=== PATIENT | female | born 1975 ===

== ENCOUNTER 2017-05-06 09:32 | Emergency (ER) | payer OTHER ==
[2017-05-06 10:16] VITALS: RESP 16; TEMP 98.1
[2017-05-06] MEDS ORDERED: Famotidine 20mg/50ml 20 MG/50 ML BAG IVPB STA (10:32)
[2017-05-06] MEDS ORDERED: Morphine 2 mg/ml ISec IVP STA (10:32)
--- NOTE | 2017-05-06 10:34 | ED PDOC ---
Arrival/HPI - General Chief Complaint: Abdominal Pain Time Seen by Provider: 05/06/17 10:19 Historian: Patient - History of Present Illness Narrative History of Present Illness (Text): 05/06/17 10:30 This 42 yo female with pmh asthma, GERD, presents to this ED c/o epigastric pain x 3 days. Patient stated she feels nauseous at this time, but she has not vomited. Patient denies sob, cp, pelvic pain, urinary symptoms, vaginal discharge, STD exposure, dizziness, or abnormal gait. Time/Duration: Other (3 days) Context: Home Past Medical History - Provider Review Nursing Documentation Reviewed: Yes - Infectious Disease Hx of Infectious Diseases: None - Reproductive Menopause: No - Psychiatric Hx Substance Use: No - Surgical History Hx Section: Yes - Anesthesia Hx Anesthesia: No Family/Social History - Physician Review Nursing Documentation Reviewed: Yes Family/Social History: Other (noncontributory) Smoking Status: Unknown If Ever Smoked Hx Alcohol Use: No Hx Substance Use: No Allergies/Home Meds Allergies/Adverse Reactions: Allergies No Known Allergies Allergy (Verified 05/06/17 10:24) Review of Systems - Review of Systems Constitutional: Normal. absent: Fatigue, Weight Change, Fevers Eyes: Normal ENT: Normal Respiratory: Normal. absent: SOB, Cough Cardiovascular: Normal. absent: Chest Pain, Palpitations Gastrointestinal: Normal, Abdominal Pain, Nausea. absent: Diarrhea, Vomiting Genitourinary Female: Normal. absent: Dysuria, Frequency, Hematuria Musculoskeletal: Normal. absent: Back Pain, Neck Pain Skin: Normal. absent: Rash Neurological: Normal. absent: Headache, Dizziness, Focal Weakness, Gait Changes , Speech Changes Endocrine: Normal Hemo/Lymphatic: Normal Psychiatric: Normal Physical Exam Vital Signs Temp Pulse Resp BP Pulse Ox 05/06/17 12:14 54 L 143/77 100 05/06/17 10:14 98.1 F 59 L 16 128/66 100 Temperature: Afebrile Blood Pressure: Normal Pulse: Regular Respiratory Rate: Normal Appearance: Positive for: Well-Appearing, Non-Toxic, Comfortable Pain Distress: None Mental Status: Positive for: Alert and Oriented X 3 - Systems Exam Head: Present: Atraumatic, Normocephalic Pupils: Present: PERRL Extroacular Muscles: Present: EOMI Conjunctiva: Present: Normal Mouth: Present: Moist Mucous Membranes Neck: Present: Normal Range of Motion Respiratory/Chest: Present: Clear to Auscultation, Good Air Exchange. No: Respiratory Distress, Accessory Muscle Use Cardiovascular: Present: Regular Rate and Rhythm, Normal S1, S2. No: Murmurs Abdomen: Present: Normal Bowel Sounds. No: Tenderness, Distention, Peritoneal Signs, Rebound, Guarding Back: Present: Normal Inspection Upper Extremity: Present: Normal Inspection, Normal ROM. No: Cyanosis, Edema Lower Extremity: Present: Normal Inspection, Normal ROM. No: Edema Neurological: Present: GCS=15, CN II-XII Intact, Speech Normal Skin: Present: Warm, Dry, Normal Color. No: Rashes Psychiatric: Present: Alert, Oriented x 3, Normal Insight, Normal Concentration Medical Decision Making ED Course and Treatment: 05/06/17 14:13 Re-evaluation. Patient feels better. Discussed results and plan with patient who expresses understanding. All questions answered and there is agreement with the plan to discharge home with instructions. Patient stable for discharge. Return if symptoms persist or worsen. Abdomen is soft, nt/nd. Patient was recommended she needs to f/u pmd, and GI doctor, possible endoscopy. Patient was recommended to return to emergency if pain worsen. Labs are normal, VS and physical exam unremarkable Re-evaluation Time: 14:12 Reassessment Condition: Re-examined, Improved - Lab Interpretations Lab Results: 05/06/17 10:55 05/06/17 10:55 Lab Results 05/06/17 10:55: Sodium 138, Potassium 4.0, Chloride 102, Carbon Dioxide 26, Anion Gap 14, BUN 9, Creatinine 0.6 L, Est GFR ( Amer) > 60, Est GFR (Non -Af Amer) > 60, Random Glucose 95, Calcium 9.3, Total Bilirubin 0.4, AST 21, ALT 29, Alkaline Phosphatase 64, Total Protein 8.6 H, Albumin 4.4, Globulin 4.2 , Albumin/Globulin Ratio 1.1, Lipase 31 05/06/17 10:55: Urine Color Yellow, Urine Appearance Clear, Urine pH 6.5, Ur Specific Rattan 1.010, Urine Protein Negative, Urine Glucose (UA) Negative, Urine Ketones Negative, Urine Blood Small H, Urine Nitrate Negative, Urine Bilirubin Negative, Urine Urobilinogen 0.2, Ur Leukocyte Esterase Negative, Urine RBC 1 - 3, Urine WBC 0 - 2, Ur Epithelial Cells 10 - 12, Urine Bacteria Few, Urine HCG, Qual Negative 05/06/17 10:55: WBC 6.5, RBC 4.06, Hgb 12.2, Hct 37.3, MCV 91.9, MCH 30.0, MCHC 32.7, RDW 12.6, Plt Count 302, MPV 10.2, Gran % 62.5, Lymph % (Auto) 29.8, [place] % (Auto) 6.2 H, Eos % (Auto) 1.2 L, Baso % (Auto) 0.3, Gran # 4.04, Lymph # 1.9 , [place] # 0.4, Eos # 0.1, Baso # 0.02 I have reviewed the lab results: Yes Interpretation: No clinic. lab abnormalty - RAD Interpretation Narrative RAD Interpretations (Text): 05/06/17 12:42 HISTORY: RUQ pain COMPARISON: None. TECHNIQUE: Grayscale imaging was performed. FINDINGS: LIVER: Measures 13.0 cm. Normal echogenicity of the liver parenchyma. No mass. No intrahepatic bile duct dilatation. GALLBLADDER: There is a large 2.7 cm gallstone. No gallbladder wall thickening, pericholecystic fluid or positive sonographic Figueroa's sign. COMMON BILE DUCT: Measures 2.4 mm. No stones. No dilatation. PANCREAS: Normal in size and echotexture. No mass. No ductal dilatation. RIGHT KIDNEY: Measures 11.6cm. Normal echogenicity. No calculus, mass, or hydronephrosis. LEFT KIDNEY: Measures 11.9cm. Normal echogenicity. No calculus, mass, or hydronephrosis. SPLEEN: Normal in size and contour. No mass. AORTA: No aneurysmal dilatation. IVC: Unremarkable. OTHER FINDINGS: None. IMPRESSION: Cholelithiasis. No evidence of acute cholecystitis. 05/06/17 14:14 CXR: NAD Radiology Orders: 05/06/17 10:28 CHEST PORTABLE [RAD] Stat ABDOMEN COMPLETE [US] Stat - Medication Orders Current Medication Orders: Discontinued Medications Al Hydrox/Mg Hydrox/Simethicone (Maalox Plus 30 Ml) 30 ml PO STAT STA Stop: 05/06/17 12:44 Last Admin: 05/06/17 13:02 Dose: 30 ml Belladonna/Phenobarbital ( Elixir) 5 ml PO STAT STA Stop: 05/06/17 12:44 Last Admin: 05/06/17 13:02 Dose: 5 ml Famotidine (Pepcid 20mg/50ml Premix) 20 mg in 50 mls @ 100 mls/hr IVPB STAT STA Stop: 05/06/17 11:01 Last Admin: 05/06/17 10:55 Dose: 100 mls/hr eMAR Start Stop Document 05/06/17 10:55 MS (Rec: 05/06/17 10:59 [place] [facility] [id number][place] Intravenous Solution Start Date 05/06/17 Start Time 10:59 End Date 05/06/17 End time 11:29 Total Infusion Time 30 Lidocaine HCl (Lidocaine 2% Viscous) 5 ml PO STAT STA Stop: 05/06/17 12:44 Last Admin: 05/06/17 13:02 Dose: 5 ml Morphine Sulfate (Morphine) 2 mg IVP STAT STA Stop: 05/06/17 10:33 Last Admin: 05/06/17 10:59 Dose: 2 mg MAR Pain Assessment Document 05/06/17 10:59 MS (Rec: 05/06/17 11:00 MS [facility] [id number][place] Pain Reassessment Is this a pain reassessment? No Sleep Is patient sleeping during reassessment? No Presence of Pain Presence of Pain Yes Pain Scale Used Pain Scale Used Numeric Location Pain Location Body Site Abdomen Description Description Intermittent Intensity of Pain at present 7 Pain Behavior Guarding Withdrawal from Touch IVP Administration Document 05/06/17 10:59 MS (Rec: 05/06/17 11:00 MS [facility] [id number]) Charges for Administration # of IVP Administrations 1 Ondansetron HCl (Zofran Inj) 4 mg IVP STAT STA Stop: 05/06/17 10:33 Last Admin: 05/06/17 10:59 Dose: 4 mg IVP Administration Document 05/06/17 10:59 MS (Rec: 05/06/17 10:59 MS [facility] [id number]) Charges for Administration # of IVP Administrations 1 Disposition/Present on Arrival - Present on Arrival Any Indicators Present on Arrival: No History of DVT/PE: No History of Uncontrolled Diabetes: No Urinary Catheter: No History of Decub. Ulcer: No History Surgical Site Infection Following: Abdominal Surgery - Disposition Have Diagnosis and Disposition been Completed?: Yes Diagnosis: Epigastric abdominal pain, GERD (gastroesophageal reflux disease) Disposition: HOME/ ROUTINE Disposition Time: 14:16 Patient Plan: Discharge Patient Problems: Current Active Problems Problem Status Onset Epigastric abdominal pain Acute Condition: GOOD Discharge Instructions (ExitCare): Gastroesophageal Reflux Disease (ED), Abdominal Pain (ED), Gas and Bloating (ED) Print Language: NEPALESE Additional Instructions: Call private doctor for follow up visit in 1-2 days. [facility] if you do not have a doctor. You will need to see time clock mechanic for revaluation. take medication as instructed. Take OTC Tylenol for pain as needed. Return to emergency if pain worsen. Prescriptions: Ondansetron ODT [Zofran ODT] 4 mg PO Q4H PRN #15 odt PRN Reason: Nausea/Vomiting Pantoprazole Sodium [Protonix] 40 mg PO DAILY #20 ect Sucralfate [Carafate] 1 gm PO DAILY #200 ml Referrals: PCP,JOSE [Primary Care Provider] - Follow up with primary [facility] [Outside] - Follow up with primary [facility] [Outside] - Follow up with primary [facility] [Outside] - Follow up with primary Jude Torres DO [Staff Provider] - Follow up with primary Forms: WORK NOTE
[2017-05-06 11:09] LABS: BASO # 0.02 K/mm3 (0.0-2.0); BASO % 0.3 % (0.0-3.0); EOS # 0.1 (0.0-0.7); EOS % 1.2 % (1.5-5.0); GRAN # 4.04 (1.4-6.5); GRAN % 62.5 % (50.0-68.0); HEMOGLOBIN 12.2 g/dL (12.0-16.0); LYMPH # 1.9 (1.2-3.4); LYMPH % 29.8 % (22.0-35.0); MEAN CELL VOLUME 91.9 fl (80.0-105.0); MEAN CORPUSCULAR HGB CONC 32.7 g/dl (31.0-37.0); MEAN PLATELET VOLUME 10.2 fl (7.0-11.0); MONO # 0.4 (0.1-0.6); MONO % 6.2 % (1.0-6.0); PH,URINE 6.5 (4.7-8.0); RBC 4.06 10^6/uL (3.5-6.1); RED CELL DISTRIBUTION WIDTH 12.6 % (11.5-14.5); URINE BILIRUBIN NEGATIVE (NEGATIVE); URINE BLOOD SMALL (NEGATIVE); URINE GLUCOSE (UA) NEGATIVE (NEGATIVE); URINE LEUKOCYTE ESTERASE NEGATIVE Leu/uL (NEGATIVE); URINE NITRATE NEGATIVE (NEGATIVE); URINE PROTEIN NEGATIVE mg/dL (<30 mg/dL); URINE UROBILINOGEN 0.2 E.U./dL (<1 E.U./dL); WHITE BLOOD COUNT 6.5 10^3/ul (4.5-11.0)
[2017-05-06 11:10] LABS: URINE APPEARANCE CLEAR (CLEAR); URINE COLOR YELLOW (YELLOW)
[2017-05-06 11:13] LABS: HCG,QUALITATIVE URINE NEGATIVE (NEGATIVE)
[2017-05-06 11:16] LABS: ALBUMIN 4.4 g/dL (3.0-4.8); ALT/SGPT 29 U/L (7-56); AST/SGOT 21 U/L (14-36); BLOOD UREA NITROGEN 9 mg/dL (7-21); CALCIUM 9.3 mg/dL (8.4-10.5); GFR AFRICAN-AMERICAN > 60; GFR NON-AFRICAN AMERICAN > 60; LIPASE 31 U/L (23-300); URINE BACTERIA FEW (NEG); URINE WBC 0 - 2 /hpf (0-6)
[2017-05-06 11:51] LABS: ALB/GLOB RATIO 1.1 (1.1-1.8)
--- NOTE | 2017-05-06 12:30 | US ---
HISTORY: RUQ pain COMPARISON: None. TECHNIQUE: Grayscale imaging was performed. FINDINGS: LIVER: Measures 13.0 cm. Normal echogenicity of the liver parenchyma. No mass. No intrahepatic bile duct dilatation. GALLBLADDER: There is a large 2.7 cm gallstone. No gallbladder wall thickening, pericholecystic fluid or positive sonographic Figueroa's sign. COMMON BILE DUCT: Measures 2.4 mm. No stones. No dilatation. PANCREAS: Normal in size and echotexture. No mass. No ductal dilatation. RIGHT KIDNEY: Measures 11.6cm. Normal echogenicity. No calculus, mass, or hydronephrosis. LEFT KIDNEY: Measures 11.9cm. Normal echogenicity. No calculus, mass, or hydronephrosis. SPLEEN: Normal in size and contour. No mass. AORTA: No aneurysmal dilatation. IVC: Unremarkable. OTHER FINDINGS: None. IMPRESSION: Cholelithiasis. No evidence of acute cholecystitis.
--- NOTE | 2017-05-06 12:34 | RAD ---
HISTORY: upper back pain COMPARISON: No prior. FINDINGS: LUNGS: The lungs are well inflated and clear. PLEURA: No significant pleural effusion identified, no pneumothorax apparent. CARDIOVASCULAR: Normal. OSSEOUS STRUCTURES: No significant abnormalities. VISUALIZED UPPER ABDOMEN: Normal. OTHER FINDINGS: None. IMPRESSION: No active pulmonary disease.
[2017-05-06] MEDS ORDERED: Atrop/Hyosc/Scopal/PB Elixir (120 ml) PO STA (12:43)
[2017-05-06] MEDS ORDERED: Alum-Mag Hydrox-Simethicone Susp (30 mL) PO STA (12:43)
[2017-05-06 14:56] VITALS: BP 142/78; PULSE 64; O2SAT 97
== END 2017-05-06 14:56 | disposition home or self-care (01) ==
LOC: ED 09:32
DX: K21.9 Gastro-esophageal reflux disease without esophagitis (principal); R10.13 Epigastric pain
CPT/HCPCS: 71045; 76700; 80053; 81001; 83690; 84703; 85025; 96365; 96375; 99284; J2270; J2405

== ENCOUNTER 2018-03-14 09:30 | Emergency (ER) | payer OTHER ==
[2018-03-14 09:39] VITALS: BMI 26.0
[2018-03-14 09:49] VITALS: TEMP 98; O2SAT 100
--- NOTE | 2018-03-14 10:12 | ED PDOC ---
Arrival/HPI - General Chief Complaint: Shortness Of Breath Time Seen by Provider: 03/14/18 10:01 Historian: Patient - History of Present Illness Narrative History of Present Illness (Text): 03/14/18 10:08 43 y/o female, pmh including gerd/asthma, nkda, c/o coughing and fever with wheezing x 2 days. Pt. stated that she has been coughing with fever x 2 days, associated with wheezing, no night sweat, no rash, no numbness or tingling, no headache or night sweat, no recent traveling, no extremity or swelling pain history, no other medical or psychological complaints. Past Medical History - Provider Review Nursing Documentation Reviewed: Yes - Infectious Disease Hx of Infectious Diseases: None - Pulmonary Hx Asthma: Yes - Gastrointestinal Hx Gastrointestinal Disorders: No - Genitourinary/Gynecological Hx Genitourinary Disorders: No - Psychiatric Hx Psychophysiologic Disorder: No Hx Substance Use: No - Surgical History Hx Section: Yes - Anesthesia Hx Anesthesia: No Family/Social History - Physician Review Nursing Documentation Reviewed: Yes Family/Social History: Unknown Family HX Smoking Status: Unknown If Ever Smoked Hx Alcohol Use: No Hx Substance Use: No Allergies/Home Meds Allergies/Adverse Reactions: Allergies No Known Allergies Allergy (Verified 05/06/17 10:24) Review of Systems - Review of Systems Constitutional: Fevers. absent: Fatigue Eyes: absent: Vision Changes ENT: absent: Hearing Changes Respiratory: Cough, Sputum, Wheezing. absent: SOB Cardiovascular: absent: Chest Pain Gastrointestinal: absent: Abdominal Pain, Nausea, Vomiting Musculoskeletal: absent: Arthralgias, Back Pain Skin: absent: Rash, Pruritis Neurological: absent: Headache, Dizziness Psychiatric: absent: Anxiety, Depression, Suicidal Ideation Physical Exam Vital Signs Reviewed: Yes Vital Signs Temp Pulse Resp BP Pulse Ox 03/14/18 09:43 98 F 65 21 107/68 100 03/14/18 09:30 98 F 65 21 107/68 100 Temperature: Afebrile Blood Pressure: Normal Pulse: Regular Respiratory Rate: Normal Appearance: Positive for: Well-Appearing, Non-Toxic, Comfortable Pain Distress: None Mental Status: Positive for: Alert and Oriented X 3 - Systems Exam Head: Present: Atraumatic, Normocephalic Pupils: Present: PERRL Extroacular Muscles: Present: EOMI Conjunctiva: Present: Normal Mouth: Present: Moist Mucous Membranes Neck: Present: Normal Range of Motion Respiratory/Chest: Present: Clear to Auscultation, Good Air Exchange, Wheezes, Decreased Breath Sounds, Rhonchi (Left lower lobe). No: Respiratory Distress, Accessory Muscle Use, Rales, Retracting, Tachypneic, Tender to Palpation Cardiovascular: Present: Regular Rate and Rhythm, Normal S1, S2, Other (no pedal edema). No: Murmurs Abdomen: No: Tenderness, Distention, Peritoneal Signs Back: Present: Normal Inspection. No: CVA Tenderness, Midline Tenderness, Paraspinal Tenderness, Pain with Leg Raise, Decubitus Ulcer Upper Extremity: Present: Normal Inspection. No: Cyanosis, Edema Lower Extremity: Present: Normal Inspection. No: Edema Neurological: Present: GCS=15, CN II-XII Intact, Speech Normal, Motor Func Grossly Intact, Gait Normal, Memory Normal Skin: Present: Warm, Dry, Normal Color. No: Rashes Psychiatric: Present: Alert, Oriented x 3, Normal Insight, Normal Concentration Medical Decision Making ED Course and Treatment: 03/14/18 10:24 -EKG -Labs -CXR -IV solumedrol/duoneb -observe and reassess 03/14/18 11:14 -Urine hcg is negative. -EKG: NSR @ 70 BPM, no ST elevation or depression, T wave inversion lead III -CXR show No active disease. -Labs show no acute findings -Trop is negative after 24 hours -Pt. feels much better, bilateral clear to auscultate with no wheezing/crackles/rhonchis, feel much better, will discharge home. -Discharge home with zithromax, prednisone, albuterol MDI, claritin, tylenol, stay hydrated, follow up with your own pmd within 2 days, return to the ER for any new or worsening signs or symptoms. - Lab Interpretations I have reviewed the lab results: Yes - RAD Interpretation Radiology Orders: Chest xray: Date of service: 03/14/2018 HISTORY: medical clearance COMPARISON: 05/06/2017 FINDINGS: LUNGS: No active pulmonary disease. PLEURA: No significant pleural effusion identified, no pneumothorax apparent. CARDIOVASCULAR: No aortic atherosclerotic calcification present. Normal cardiac size. No pulmonary vascular congestion. OSSEOUS STRUCTURES: No significant abnormalities. VISUALIZED UPPER ABDOMEN: Normal. OTHER FINDINGS: None. IMPRESSION: No active disease. Glass Inspector: Radiologist - EKG Interpretation EKG Interpretation (Text): 03/14/18 10:25 -EKG: NSR @ 70 BPM, no ST elevation or depression, T wave inversion lead III Interpreted by ED Physician: Yes Type: 12 lead EKG Comparison: No previous EKG avail. - PA / LINE OPERATOR / Resident Statement MD/DO has reviewed & agrees with the documentation as recorded. Disposition/Present on Arrival - Present on Arrival Any Indicators Present on Arrival: No History of DVT/PE: No History of Uncontrolled Diabetes: No Urinary Catheter: No History of Decub. Ulcer: No History Surgical Site Infection Following: None - Disposition Have Diagnosis and Disposition been Completed?: Yes Diagnosis: URI (upper respiratory infection), Bronchitis Disposition: HOME/ ROUTINE Disposition Time: 11:16 Patient Plan: Discharge Patient Problems: Current Active Problems Problem Status Onset Bronchitis Acute URI (upper respiratory infection) Acute Condition: IMPROVED Additional Instructions: -Discharge home with zithromax, prednisone, albuterol MDI, claritin, tylenol, stay hydrated, follow up with your own pmd within 2 days, return to the ER for any new or worsening signs or symptoms. Prescriptions: Albuterol HFA [Ventolin HFA 90 mcg/actuation (8 g)] 2 puff IH [id number] PRN #1 inhaler PRN Reason: Cough Acetaminophen [Tylenol Extra Strength] 500 mg PO QID PRN #30 tablet PRN Reason: Other Azithromycin [Zithromax] 250 mg PO DAILY #6 tab Loratadine [Claritin] 10 mg PO DAILY #10 tab Prednisone 50 mg PO DAILY #5 tablet Referrals: [facility] [place] [Outside] - Follow up with primary Forms: [employer] (Maori), WORK NOTE
[2018-03-14] MEDS: Albuterol-Ipratrop 3 mg / 0.5 (3 ml) UD IH SCH ×2 (10:23→10:39)
[2018-03-14 10:36] LABS: BASO # 0.03 K/mm3 (0.0-2.0); BASO % 0.3 % (0.0-3.0); EOS # 0.2 (0.0-0.7); EOS % 1.7 % (1.5-5.0); GRAN # 5.49 (1.4-6.5); GRAN % 59.4 % (50.0-68.0); HEMOGLOBIN 11.7 g/dL (12.0-16.0); LYMPH # 3.1 (1.2-3.4); LYMPH % 33.3 % (22.0-35.0); MEAN CELL VOLUME 91.1 fl (80.0-105.0); MEAN CORPUSCULAR HEMOGLOBIN 29.8 pg (25.0-35.0); MEAN CORPUSCULAR HGB CONC 32.7 g/dl (31.0-37.0); MEAN PLATELET VOLUME 9.4 fl (7.0-11.0); MONO # 0.5 (0.1-0.6); MONO % 5.3 % (1.0-6.0); RBC 3.93 10^6/uL (3.5-6.1); RED CELL DISTRIBUTION WIDTH 12.8 % (11.5-14.5); WHITE BLOOD COUNT 9.3 10^3/uL (4.5-11.0)
[2018-03-14 10:46] LABS: ALB/GLOB RATIO 1.1 (1.1-1.8); ALBUMIN 4.2 g/dL (3.0-4.8); ALT/SGPT 22 U/L (7-56); AST/SGOT 22 U/L (14-36); BLOOD UREA NITROGEN 11 mg/dL (7-21); CALCIUM 8.9 mg/dL (8.4-10.5); GFR NON-AFRICAN AMERICAN > 60
[2018-03-14 10:57] LABS: TROPONIN I < 0.01 ng/mL
--- NOTE | 2018-03-14 10:59 | RAD ---
Date of service: 03/14/2018 HISTORY: medical clearance COMPARISON: 05/06/2017 FINDINGS: LUNGS: No active pulmonary disease. PLEURA: No significant pleural effusion identified, no pneumothorax apparent. CARDIOVASCULAR: No aortic atherosclerotic calcification present. Normal cardiac size. No pulmonary vascular congestion. OSSEOUS STRUCTURES: No significant abnormalities. VISUALIZED UPPER ABDOMEN: Normal. OTHER FINDINGS: None. IMPRESSION: No active disease.
[2018-03-14 11:28] VITALS: BP 119/57; PULSE 82; RESP 16
--- NOTE | 2018-03-14 13:32 | CARD ---
APPROVED REPORT Date of service: 03/14/2018 EKG Measurement Heart [id number] <Conclusion> Normal sinus rhythm Incomplete right bundle branch block Borderline ECG
== END 2018-03-14 11:32 | disposition home or self-care (01) ==
LOC: ED 09:30
DX: J40 Bronchitis, not specified as acute or chronic (principal); J06.9 Acute upper respiratory infection, unspecified
CPT/HCPCS: 71045; 80053; 84484; 85025; 87804; 93005; 96374; 99284; J2930

== ENCOUNTER 2018-05-25 00:27 | Emergency (ER) | payer OTHER ==
[2018-05-25 00:27] VITALS: BMI 26.0
[2018-05-25 00:59] VITALS: TEMP 98.8
[2018-05-25] MEDS ORDERED: Sodium Chloride 0.9% 1,000 ML IV STA (01:08)
--- NOTE | 2018-05-25 01:13 | ED PDOC ---
Arrival/HPI - General Chief Complaint: Abdominal Pain Time Seen by Provider: 05/25/18 00:49 Historian: Patient - History of Present Illness Narrative History of Present Illness (Text): 05/25/18 01:10 44 year old female, with no significant past medical history, presents to the emergency department with abdominal pain, since 17:00 yesterday. Patient states she did not eat anything out of the ordinary, but she did eat rice and chicken before onset of pain. Patient informs pain is localized to the right side of the abdomen and the epigastric region. Patient informs she had 1 episode of vomiting. Patient denies any fevers, chills, headache, dizziness, shortness of breath, chest pain, cough, diarrhea, back pain, neck pain, or any other complaints. Time/Duration: 4-6 hours Symptom Onset: Gradual Symptom Course: Unchanged Quality: Cramping Activities at Onset: Light, Eating Context: Home Past Medical History - Infectious Disease Hx of Infectious Diseases: None - Reproductive Currently : No - Pulmonary Hx Respiratory Disorders: Yes Hx Asthma: Yes - Gastrointestinal Hx Gastrointestinal Disorders: No - Genitourinary/Gynecological Hx Genitourinary Disorders: No - Psychiatric Hx Psychophysiologic Disorder: No Hx Substance Use: No - Surgical History Hx Section: Yes - Anesthesia Hx Anesthesia: No Family/Social History - Physician Review Nursing Documentation Reviewed: Yes Family/Social History: No Known Family HX Smoking Status: Never Smoked Hx Alcohol Use: No Hx Substance Use: No Allergies/Home Meds Allergies/Adverse Reactions: Allergies No Known Allergies Allergy (Verified 05/06/17 10:24) Review of Systems - Physician Review All systems were reviewed & negative as marked: Yes - Review of Systems Constitutional: absent: Fevers, Night Sweats Respiratory: absent: SOB, Cough Cardiovascular: absent: Chest Pain Gastrointestinal: Abdominal Pain, Vomiting. absent: Diarrhea Musculoskeletal: absent: Back Pain, Neck Pain Neurological: absent: Headache, Dizziness Physical Exam Vital Signs Reviewed: Yes Vital Signs Temp Pulse Resp BP Pulse Ox 05/25/18 00:57 98.8 F 59 L 23 124/67 100 Temperature: Afebrile Blood Pressure: Normal Pulse: Regular Respiratory Rate: Normal Appearance: Positive for: Well-Appearing, Non-Toxic, Comfortable Pain Distress: None Mental Status: Positive for: Alert and Oriented X 3 - Systems Exam Head: Present: Atraumatic, Normocephalic Pupils: Present: PERRL Extroacular Muscles: Present: EOMI Conjunctiva: Present: Normal Mouth: Present: Moist Mucous Membranes Neck: Present: Normal Range of Motion Respiratory/Chest: Present: Clear to Auscultation, Good Air Exchange. No: Respiratory Distress, Accessory Muscle Use Cardiovascular: Present: Regular Rate and Rhythm, Normal S1, S2. No: Murmurs Abdomen: No: Tenderness, Distention, Peritoneal Signs Back: Present: Normal Inspection Upper Extremity: Present: Normal Inspection. No: Cyanosis, Edema Lower Extremity: Present: Normal Inspection. No: Edema Neurological: Present: GCS=15, CN II-XII Intact, Speech Normal Skin: Present: Warm, Dry, Normal Color. No: Rashes Psychiatric: Present: Alert, Oriented x 3, Normal Insight, Normal Concentration Medical Decision Making ED Course and Treatment: 05/25/18 01:14 Impression: 44 year old female presents with abdominal pain Plan: -- EKG -- CMP, Lipase -- CBC -- Chest Xray -- Pepcid, Toradol, Zofran -- Urinalysis -- US gallbladder & pancreas -- Reassess and disposition Prior Visits: Notes and results from previous visits were reviewed. Progress Notes: 05/25/18 03:16 Ultrasound of the gallbladder. Indication: Right upper quadrant pain. Technique: Real-time ultrasound images were obtained. Findings: Liver measures 16.2 cm. Cholelithiasis. Gallstone is noted adjacent to the gallbladder neck. Normal gallbladder wall thickness measuring 1.7 mm. Limited visualization of the pancreas. Nondilated common bile duct measuring 5.9mm. Nonaneurysmal aorta. Unremarkable IVC. The right kidney measures 12x4.3x4.5 cm without evidence of hydronephrosis or calculi. Impression: Cholelithiasis without acute cholecystitis. - RAD Interpretation Radiology Orders: 05/25/18 01:07 CHEST PORTABLE [RAD] Stat GALLBLADDER & PANCREAS [US] Stat - Medication Orders Current Medication Orders: Famotidine (Pepcid) 20 mg IVP STAT STA Stop: 05/25/18 01:08 Sodium Chloride (Sodium Chloride 0.9%) 1,000 mls @ 999 mls/hr IV .Q1H1M STA Stop: 05/25/18 02:08 Ketorolac Tromethamine (Toradol) 30 mg IVP ONCE ONE Stop: 05/25/18 01:08 Ondansetron HCl (Zofran Inj) 4 mg IVP ONCE ONE Stop: 05/25/18 01:08 - Scribe Statement The provider has reviewed the documentation as recorded by the Pk Grimm Provider Scribe Attestation: All medical record entries made by the Scribe were at my direction and personally dictated by me. I have reviewed the chart and agree that the record accurately reflects my personal performance of the history, physical exam, medical decision making, and the department course for this patient. I have also personally directed, reviewed, and agree with the discharge instructions and disposition. Disposition/Present on Arrival - Present on Arrival Any Indicators Present on Arrival: No History of DVT/PE: No History of Uncontrolled Diabetes: No Urinary Catheter: No History of Decub. Ulcer: No History Surgical Site Infection Following: None - Disposition Have Diagnosis and Disposition been Completed?: Yes Diagnosis: Abdominal pain, Cholelithiasis Disposition: HOME/ ROUTINE Disposition Time: 04:06 Patient Plan: Discharge Condition: GOOD Discharge Instructions (ExitCare): Gallstones (DC) Print Language: ALBANIAN Additional Instructions: Avoid fatty/greasy foods/medication as prescribed/follow up with your doctor this week Prescriptions: Phenobarb/Hyoscy/Atropine/Scop [ Tablet] 16.2 mg PO Q6 PRN #12 tablet PRN Reason: Dyspepsia Referrals: [facility] [Outside] - Follow up with primary Karlene Coffey MD [Medical Doctor] - Follow up with primary Forms: [employer] (Greenlandic)
[2018-05-25 01:20] LABS: HEMOGLOBIN 11.9 g/dL (12.0-16.0); MEAN CELL VOLUME 90.4 fl (80.0-105.0); MEAN CORPUSCULAR HEMOGLOBIN 30.1 pg (25.0-35.0); MEAN CORPUSCULAR HGB CONC 33.3 g/dl (31.0-37.0); RBC 3.95 10^6/uL (3.5-6.1); RED CELL DISTRIBUTION WIDTH 12.9 % (11.5-14.5); WHITE BLOOD COUNT 8.9 10^3/uL (4.5-11.0)
[2018-05-25 01:32] LABS: URINE BILIRUBIN NEGATIVE (NEGATIVE); URINE BLOOD MODERATE (NEGATIVE); URINE GLUCOSE (UA) NEGATIVE (NEGATIVE); URINE LEUKOCYTE ESTERASE NEGATIVE Leu/uL (NEGATIVE); URINE PROTEIN NEGATIVE mg/dL (<30 mg/dL); URINE UROBILINOGEN 0.2 E.U./dL (<1 E.U./dL)
[2018-05-25 01:33] LABS: URINE APPEARANCE CLEAR (CLEAR); URINE COLOR YELLOW (YELLOW)
[2018-05-25 01:37] LABS: ALB/GLOB RATIO 1.1 (1.1-1.8)
[2018-05-25 02:10] LABS: URINE RBC 0 - 2 /hpf (0-2)
[2018-05-25 02:11] LABS: URINE BACTERIA OCC /hpf
[2018-05-25 02:50] LABS: ALBUMIN 4.3 g/dL (3.0-4.8); ALT/SGPT 17 U/L (7-56); AST/SGOT 26 U/L (14-36); BLOOD UREA NITROGEN 14 mg/dL (7-21); CALCIUM 9.3 mg/dL (8.4-10.5); GFR NON-AFRICAN AMERICAN > 60; LIPASE 37 U/L (23-300)
[2018-05-25 04:17] VITALS: BP 130/72; PULSE 62; RESP 18; O2SAT 98
--- NOTE | 2018-05-25 09:52 | US ---
Date of service: 05/25/2018 HISTORY: upper abdominal pain COMPARISON: 05/06/2017 abdominal ultrasound TECHNIQUE: Sonographic evaluation of the right upper quadrant of the abdomen. FINDINGS: LIVER: Measures 16.2 cm in length. Patent portal vein. Portal venous flow: Hepatopetal. Unremarkable echogenicity of the liver parenchyma. No mass. No intrahepatic bile duct dilatation. GALLBLADDER: Cholelithiasis. Negative study for gallbladder wall thickening, pericholecystic fluid, sonographic Figueroa's sign. COMMON BILE DUCT: Measures 4.4 mm. No stones. No dilatation. PANCREAS: Unremarkable as visualized. No mass. No ductal dilatation. RIGHT KIDNEY: Measures 4.5 x 12.0 cm in length. Normal echogenicity. No calculus, mass, or hydronephrosis. AORTA: No aneurysmal dilatation. IVC: Unremarkable. OTHER FINDINGS: None . IMPRESSION: Cholelithiasis. No sonographic evidence of acute cholecystitis. No significant interval change compared to the prior examination(s). Concordant findings (preliminary report) provided by [facility].
--- NOTE | 2018-05-25 10:11 | CARD ---
APPROVED REPORT Date of service: 05/25/2018 EKG Measurement Heart [id number] <Conclusion> Sinus bradycardia Minimal voltage criteria for LVH, may be normal variant Borderline ECG
--- NOTE | 2018-05-25 11:02 | RAD ---
Date of service: 05/25/2018 PROCEDURE: CHEST RADIOGRAPH, 1 VIEW HISTORY: upper abdominal pain COMPARISON: 03/14/2018 FINDINGS: LUNGS: Clear. PLEURA: No pneumothorax or pleural fluid seen. CARDIOVASCULAR: No aortic atherosclerotic calcification present. Normal. OSSEOUS STRUCTURES: No significant abnormalities. VISUALIZED UPPER ABDOMEN: Normal. OTHER FINDINGS: None. IMPRESSION: No active disease.
== END 2018-05-25 04:16 | disposition home or self-care (01) ==
LOC: ED 00:27 → EDBD 00:27 → ED 04:16
DX: K80.20 Calculus of gallbladder without cholecystitis without obstruction (principal); R10.9 Unspecified abdominal pain
CPT/HCPCS: 71045; 76705; 80053; 81001; 81025; 83690; 85027; 93005; 96361; 96374; 96375; 99284; J1885; J2405; J7030